=== PATIENT | female | born 1955 | race Caucasian/White ===

== ENCOUNTER 2016-12-07 12:26 | Inpatient (IN) | payer OTHER ==
[~2016-12-07] VITALS: Ht 170.2 cm; Wt 72.2 kg
[2016-12-07 14:13] LABS: EOSINOPHIL (%) 0.7 % (0-5); EOSINOPHIL COUNT 0.1 K/uL (0-0.3); HEMATOCRIT 47.7 % (36.0-46.0); IMMATURE GRANULOCYTE (%) 1.2 % (0.0-0.7); IMMATURE GRANULOCYTE COUNT 0.1 K/uL; INSTRUMENT ABS NEUTROPHIL CT 5.8 K/uL; LYMPHOCYTE COUNT 1.9 K/uL (1.0-2.8); MCH 29.4 PG (29.0-34.0); MCHC 34.4 G/DL (30.0-36.0); MCV 85.6 FL (83-99); MEAN PLAT.VOLUME 11.2 uM^3 (9.5-12.4); MONOCYTE (%) 6.5 % (3-12); MONOCYTE COUNT 0.6 K/uL (0-0.8); NEUTROPHIL (%) 68.3 % (45-76); NEUTROPHIL COUNT 5.8 K/uL (1.8-6.4); PLATELET COUNT 291 K/uL (156-360); RBC DIS.WIDTH-CV 12.5 % (11.8-14.6); RED BLOOD COUNT 5.57 M/uL (3.80-5.20); WHITE BLOOD COUNT 8.5 K/uL (4.1-10.2)
[2016-12-07 14:17] LABS: PROTHROMBIN TIME 10.2 (9.2-11.2); PTT 27.2 (25-32)
[2016-12-07 14:42] LABS: CHLORIDE 90 mEq/L (99-109); POTASSIUM 3.8 mEq/L (3.7-5.4); SODIUM 124 mEq/L (136-147)
[2016-12-07 14:45] LABS: ANION GAP 12 MEQ/L (2-14); GLUCOSE 796 mg/dL (70-99)
[2016-12-07 14:47] LABS: GFR ESTIMATE (CALCULATED) 35 mL/min/
[2016-12-07 14:48] LABS: UREA NITROGEN (BUN) 16 mg/dL (9-23)
[2016-12-07 14:52] LABS: TROP-I INTERPRETATION NEGATIVE; TROPONIN-I 0.02 ng/mL (0.0-0.30)
[2016-12-07 15:20] LABS: BICARBONATE 22.4 mEq/L (22-26); METHEMOGLOBIN 0.5 % (0-1.5); PCO2 33 mm Hg (35-45); PO2 83 mm Hg (80-100); pH 7.44 (7.35-7.45)
[2016-12-07 15:21] LABS: COMMENTS - BLOOD GASES A+C+; FI02 21 %; SITE LR
[2016-12-07] MEDS ORDERED: LISINOPRIL40 MG PO (16:25)
[2016-12-07] MEDS ORDERED: ATORVASTATIN CA40 MG PO (16:26)
[2016-12-07] MEDS ORDERED: TOPROL XL100 MG PO (16:26)
[2016-12-07] MEDS ORDERED: NORVASC5 MG PO (16:26)
[2016-12-07] MEDS ORDERED: GLIMEPIRIDE1 MG PO (16:27)
[2016-12-07] MEDS ORDERED: ADVIL,NUPRIN,M200 MG PO (16:27)
[2016-12-07] MEDS ORDERED: EXCEDRIN EXTRA1 EACH PO (16:27)
[2016-12-07 18:18] LABS: ADD MIUA? YES; BILIRUBIN NEGATIVE; BLOOD NEGATIVE; COLOR YELLOW ((YELLOW)); GLUCOSE (STRIP) >=500; KETONES NEGATIVE; LEUKOCYTES SMALL; NITRITE NEGATIVE; PROTEIN (STRIP) 100; UROBILINOGEN 0.2 MG/DL (0.2-1.0)
[2016-12-07 18:26] LABS: BACTERIA RARE /HPF; EPITHELIAL CELLS RARE /HPF; MUCUS NONE SEEN /LPF
[2016-12-07 18:40] LABS: UR CREATININE CONCENTRATION 54.8 MG/DL
[2016-12-07 21:32] VITALS: BP 160/80
[2016-12-07 21:39] LABS: TROP-I INTERPRETATION NEGATIVE; TROPONIN-I 0.02 ng/mL (0.0-0.30)
[2016-12-07 22:11] VITALS: BP 160/80
[2016-12-08 03:53] VITALS: BP 185/86
[2016-12-08 03:55] LABS: POTASSIUM 3.8 mEq/L (3.7-5.4)
[2016-12-08 03:58] LABS: ANION GAP 9 MEQ/L (2-14)
[2016-12-08 04:01] LABS: UREA NITROGEN (BUN) 14 mg/dL (9-23)
[2016-12-08 04:03] LABS: CHLORIDE 108 mEq/L (99-109); GFR ESTIMATE (CALCULATED) > 59 mL/min/; GLUCOSE 319 mg/dL (70-99); SODIUM 136 mEq/L (136-147)
[2016-12-08 04:07] LABS: TROP-I INTERPRETATION NEGATIVE; TROPONIN-I 0.01 ng/mL (0.0-0.30)
[2016-12-08 07:11] LABS: Estimated Average Glucose 361 mg/dL (70-123); HEMOGLOBIN A1c (GLYCOHEMOGLOB) 14.2 % HGB (Below 5.7)
[2016-12-08 07:25] VITALS: BP 193/94
[2016-12-08 08:03] LABS: POINT-OF-CARE USER ID NUTSLF44
[2016-12-08 10:10] VITALS: BP 181/91
[2016-12-08 11:30] VITALS: BP 175/79
[2016-12-08 11:41] LABS: C DIFF TOXIN POSITIVE (NEGATIVE)
[2016-12-08 11:57] LABS: PROBE CHECK PASS
[2016-12-08 13:05] LABS: POINT-OF-CARE METER ID UU13113781; POINT-OF-CARE USER ID NUTSLF44
[2016-12-08 16:17] LABS: POINT-OF-CARE METER ID UU13113698
[2016-12-08 16:19] VITALS: BP 146/80
[2016-12-08 20:00] VITALS: BP 197/98
[2016-12-09] VITALS: BP 168/82
[2016-12-09 04:00] VITALS: BP 179/88
[2016-12-09 07:19] LABS: ANION GAP 7 MEQ/L (2-14); CHLORIDE 103 MEQ/L (99-109); POTASSIUM 3.7 MEQ/L (3.7-5.4); SAMPLE HEMOLYSIS CHECK 0; SAMPLE ICTERIC CHECK 0; SAMPLE LIPEMIA CHECK 0; SODIUM 135 MEQ/L (136-147)
[2016-12-09 07:21] LABS: EOSINOPHIL (%) 3.2 % (0-5); EOSINOPHIL COUNT 0.2 K/uL (0-0.3); HEMATOCRIT 38.7 % (36.0-46.0); IMMATURE GRANULOCYTE (%) 0.3 % (0.0-0.7); LYMPHOCYTE COUNT 2.8 K/uL (1.0-2.8); MCHC 34.1 G/DL (30.0-36.0); MONOCYTE (%) 6.9 % (3-12); MONOCYTE COUNT 0.5 K/uL (0-0.8); NEUTROPHIL (%) 45.6 % (45-76); RBC DIS.WIDTH-CV 12.9 % (11.8-14.6); RBC DIS.WIDTH-SD 41.9 % (39-53); WHITE BLOOD COUNT 6.5 K/uL (4.1-10.2)
[2016-12-09 07:24] LABS: GFR ESTIMATE (CALCULATED) > 59 mL/min/; GLUCOSE 333 mg/dL (70-99); UREA NITROGEN (BUN) 18 mg/dL (9-23)
[2016-12-09 07:35] LABS: MEAN PLAT.VOLUME 11.3 uM^3 (9.5-12.4); PLAT.SUFFICIENCY ADEQUATE
[2016-12-09 07:38] LABS: PLATELET COUNT 199 K/uL (156-360)
[2016-12-09 08:33] LABS: POINT-OF-CARE METER ID UU13113698; POINT-OF-CARE USER ID NUTSLF44
[2016-12-09 08:36] VITALS: BP 197/109
[2016-12-09 09:44] LABS: POINT-OF-CARE METER ID UU13113702
[2016-12-09 09:44] LABS: POINT-OF-CARE METER ID UU13113702
[2016-12-09 11:52] LABS: POINT-OF-CARE METER ID UU13113698; POINT-OF-CARE USER ID NUTSLF44
[2016-12-09 17:29] LABS: POINT-OF-CARE METER ID UU13113698; POINT-OF-CARE USER ID NUTSLF44
[2016-12-09 18:00] VITALS: BP 183/91
[2016-12-09 20:36] LABS: POINT-OF-CARE METER ID UU13113698
[2016-12-09 21:00] VITALS: BP 158/63
[2016-12-10] VITALS: BP 146/96
[2016-12-10 03:35] VITALS: BP 142/100
[2016-12-10 07:00] LABS: ANION GAP 8 MEQ/L (2-14); CHLORIDE 104 MEQ/L (99-109); GFR ESTIMATE (CALCULATED) > 59 mL/min/; POTASSIUM 3.2 MEQ/L (3.7-5.4); SAMPLE HEMOLYSIS CHECK 0; SAMPLE ICTERIC CHECK 0; SAMPLE LIPEMIA CHECK 0; SODIUM 139 MEQ/L (136-147); UREA NITROGEN (BUN) 19 mg/dL (9-23)
[2016-12-10 07:02] LABS: GLUCOSE 124 mg/dL (70-99)
[2016-12-10 08:30] LABS: POINT-OF-CARE USER ID ENVKC36
[2016-12-10 09:00] VITALS: BP 197/86
[2016-12-10 10:02] LABS: ADD MIUA? YES; BILIRUBIN NEGATIVE; BLOOD LARGE; COLOR YELLOW ((YELLOW)); GLUCOSE (STRIP) 50; KETONES NEGATIVE; LEUKOCYTES TRACE; NITRITE NEGATIVE; PROTEIN (STRIP) 100; SPECIFIC GRAVITY 1.013 (1.000-1.030); UROBILINOGEN 0.2 MG/DL (0.2-1.0)
[2016-12-10 10:38] LABS: UR CREATININE CONCENTRATION 85.4 MG/DL
[2016-12-10 10:59] LABS: BACTERIA RARE /HPF; EPITHELIAL CELLS RARE /HPF; HYALINE CASTS 0-5 /LPF; MUCUS TRACE /LPF; RED BLOOD CELLS TNTC /HPF (0-5)
[2016-12-10 11:41] LABS: POINT-OF-CARE METER ID UU14174216; POINT-OF-CARE USER ID ENVKC36
[2016-12-10 16:26] LABS: POINT-OF-CARE METER ID UU14174216; POINT-OF-CARE USER ID ENVKC36
[2016-12-10 18:35] VITALS: BP 176/86
[2016-12-10 21:20] VITALS: BP 180/98
[2016-12-10 23:26] VITALS: BP 132/68
[2016-12-11 04:20] VITALS: BP 138/80
[2016-12-11 06:23] LABS: ANION GAP 8 MEQ/L (2-14); CHLORIDE 99 MEQ/L (99-109); GFR ESTIMATE (CALCULATED) > 59 mL/min/; SAMPLE HEMOLYSIS CHECK 0; SAMPLE ICTERIC CHECK 0; SAMPLE LIPEMIA CHECK 0; UREA NITROGEN (BUN) 20 mg/dL (9-23)
[2016-12-11 06:25] LABS: GLUCOSE 352 mg/dL (70-99); POTASSIUM 3.9 MEQ/L (3.7-5.4); SODIUM 132 MEQ/L (136-147)
[2016-12-11 08:10] VITALS: BP 160/90
[2016-12-11 08:21] LABS: POINT-OF-CARE USER ID ENVKC36
[2016-12-11] MEDS ORDERED: APRESOLINE25 MG PO (08:53)
[2016-12-11] MEDS ORDERED: NIFEDIPINE ER30 MG PO ×2 (08:53→12:15)
[2016-12-11] MEDS ORDERED: NICOTINE PATCH1 EAC1 TD (08:53)
[2016-12-11] MEDS ORDERED: ENDOCET 5-3251 EACH PO (08:53)
[2016-12-11] MEDS ORDERED: WELLBUTRIN100 MG PO (08:53)
[2016-12-11] MEDS ORDERED: ASPIR-LOW81 MG PO (08:53)
[2016-12-11] MEDS ORDERED: METRONIDAZOLE500 MG PO (08:53)
[2016-12-11 12:20] LABS: POINT-OF-CARE METER ID UU14174216; POINT-OF-CARE USER ID ENVKC36
== END 2016-12-11 13:29 | DRG 372 ==
LOC: EME 12:26 → 4EAST 15:42 → EDOF 15:42 → 4EAST 21:26
PROVIDERS: Emergency Medicine; Hospitalist; Internal Medicine; Internal Medicine Nephrology
DX: A04.7 Enterocolitis due to Clostridium difficile (principal); I47.1 Supraventricular tachycardia; E86.0 Dehydration; I10 Essential (primary) hypertension; E11.65 Type 2 diabetes mellitus with hyperglycemia; R00.2 Palpitations; F17.210 Nicotine dependence, cigarettes, uncomplicated; R33.9 Retention of urine, unspecified; N17.9 Acute kidney failure, unspecified; E87.8 Other disorders of electrolyte and fluid balance, not elsewhere classified; E87.1 Hypo-osmolality and hyponatremia; F31.9 Bipolar disorder, unspecified; T39.395A Adverse effect of other nonsteroidal anti-inflammatory drugs [NSAID], initial encounter; E78.5 Hyperlipidemia, unspecified; M54.9 Dorsalgia, unspecified; R80.9 Proteinuria, unspecified; I11.0 Hypertensive heart disease with heart failure; H54.7 Unspecified visual loss; I48.91 Unspecified atrial fibrillation; F41.9 Anxiety disorder, unspecified; E87.6 Hypokalemia; M19.90 Unspecified osteoarthritis, unspecified site; E87.2 Acidosis; Z91.14 Patient's other noncompliance with medication regimen; Z83.3 Family history of diabetes mellitus; Z86.73 Personal history of transient ischemic attack (TIA), and cerebral infarction without residual deficits; Z82.49 Family history of ischemic heart disease and other diseases of the circulatory system; Z79.4 Long term (current) use of insulin; Z91.19 Patient's noncompliance with other medical treatment and regimen; Z79.84 Long term (current) use of oral hypoglycemic drugs
CPT/HCPCS: 36600; 71010; 76770; 80048; 81003; 82570; 82803; 82948; 83036; 83930; 83935; 84133; 84156; 84300; 84443; 84484; 85025; 85610; 85730; 87493; 89190; 93005; 93306; 99281; 99285; J0153; J1644; J1815; J2270; J7030; J7120; S0028